=== PATIENT | female | born 1960 | race Caucasian/White ===

== ENCOUNTER → 2017-07-10 | Outpatient (CLI) | payer BC ==
--- NOTE | 2017-07-14 09:07 | MM ---
Reason for exam: screening (asymptomatic). Last mammogram was performed 1 year and 6 months ago. History: Family history of breast cancer in aunt at age 61. Benign left mammotome panel of the left breast, July 14, 2013. Taking estrogen for 1 month beginning at age 56. Taking progesterone for 1 month beginning at age 56. Physical Findings: A clinical breast exam by your physician is recommended on an annual basis and results should be correlated with mammographic findings. MG 3D Screening Mammo W/Cad Bilateral CC and MLO view(s) were taken. Prior study comparison: January 12, 2016, bilateral MG screening mammo w CAD. November 24, 2014, bilateral MG screening mammo w CAD. There are scattered fibroglandular densities. No suspicious abnormality. No significant changes when compared with prior studies. ASSESSMENT: Negative, BI-RAD 1 RECOMMENDATION: Routine screening mammogram of both breasts in 1 year.
== END | disposition home or self-care (01) ==
LOC: RADMAMWWP 14:41
PROVIDERS: ATTEND Family Medicine
DX: Z12.31 Encounter for screening mammogram for malignant neoplasm of breast (principal); Z98.890 Other specified postprocedural states
CPT/HCPCS: 77063; G0202

== ENCOUNTER → 2019-01-07 | Outpatient (CLI) | payer BC ==
--- NOTE | 2019-01-08 13:01 | MM ---
Reason for exam: screening (asymptomatic). Last mammogram was performed 1 year and 6 months ago. History: Family history of breast cancer in aunt at age 61. Benign left mammotome panel of the left breast, July 14, 2013. Taking estrogen for 1 month beginning at age 56. Taking progesterone for 1 month beginning at age 56. Physical Findings: A clinical breast exam by your physician is recommended on an annual basis and results should be correlated with mammographic findings. MG 3D Screening Mammo W/Cad Bilateral CC and MLO view(s) were taken. Prior study comparison: July 10, 2017, bilateral MG 3d screening mammo w/cad. January 12, 2016, bilateral MG screening mammo w CAD. The breast tissue is heterogeneously dense. This may lower the sensitivity of mammography. New nodular denity 3 o'clock right breast. This finding is changed when compared with previous exams. ASSESSMENT: Incomplete: need additional imaging evaluation, BI-RAD 0 RECOMMENDATION: Special view mammogram and ultrasound of the right breast. [facility] will attempt to contact patient to return for supplemental views and ultrasound.
== END | disposition home or self-care (01) ==
LOC: RADMAMWWP 11:11
PROVIDERS: ATTEND Family Medicine
DX: Z12.31 Encounter for screening mammogram for malignant neoplasm of breast (principal)
CPT/HCPCS: 77063; 77067

== ENCOUNTER → 2019-01-26 | Outpatient (CLI) | payer BC ==
--- NOTE | 2019-01-27 07:55 | MM ---
Reason for exam: additional evaluation requested from abnormal screening. Last mammogram was performed 1 month ago. History: Family history of breast cancer in aunt at age 61. Benign left mammotome panel of the left breast, July 14, 2013. Took estrogen for 1 month beginning at age 56. Took progesterone for 1 month beginning at age 56. Physical Findings: Nurse did not find any significant physical abnormalities on exam. MG 3D Work Up W/Cad RT Spot compression CC, spot compression MLO, and LM view(s) were taken of the right breast. Prior study comparison: January 07, 2019, bilateral MG 3d screening mammo w/cad. July 10, 2017, bilateral MG 3d screening mammo w/cad. There are scattered fibroglandular densities. The previously seen abnormality resolves on additional views and appears as fibroglandular tissue compatible with summation. No suspicious abnormality. These results were verbally communicated with the patient and result sheet given to the patient on 01/26/19. ASSESSMENT: Negative, BI-RAD 1 RECOMMENDATION: Return to routine screening mammogram schedule for both breasts.
== END | disposition home or self-care (01) ==
LOC: RADMAMWWP 14:34
PROVIDERS: ATTEND Family Medicine
DX: R92.8 Other abnormal and inconclusive findings on diagnostic imaging of breast (principal)
CPT/HCPCS: 77061; 77065

== ENCOUNTER → 2020-08-17 | Outpatient (CLI) | payer BC | END | disposition home or self-care (01) | LOC: LABPAT 14:47 | PROVIDERS: ATTEND Orthopaedic Surgery | DX: Z01.812 Encounter for preprocedural laboratory examination (principal) | CPT/HCPCS: 87070 ==

== ENCOUNTER 2020-08-22 09:47 | Day surgery (SDC) | payer BC ==
[2020-08-21 09:05] VITALS: BMI 40.2
[~2020-08-22 09:47] MED LIST: ACETAMINOPHEN TAB 500 MG TAB PO PRN; GABAPENTIN 300 MG CAP PO PRN; HYDROmorphone 0.5 MG/0.5 ML SYRINGE IVP PRN; LIDOCAINE 1% (10MG/ML) FOR IV START INTRADERMA PRN; MELOXICAM 7.5 MG TAB PO PRN; ONDANSETRON 4 MG/2 ML VIAL IVP ONE; TRANEXAMIC ACID 1,000 MG in SODIUM CHLORIDE 0.9% 100 ML IVPB PRN
[2020-08-22] MEDS: LACTATED RINGERS 1,000 ML IV SCH (10:38)
[2020-08-22] MEDS ORDERED: MIDAZOLAM 2 MG/2 ML VIAL IV ONE (10:47)
[2020-08-22] MEDS ORDERED: KETAMINE 10 MG/ML 20 ML VIAL ONE (11:39)
[2020-08-22] MEDS ORDERED: MIDAZOLAM 2 MG/2 ML VIAL ONE (11:39)
[2020-08-22] MEDS ORDERED: GLYCOPYRROLATE 0.2 MG/ML 2 ML VIAL ONE (11:39)
[2020-08-22] MEDS ORDERED: TRANEXAMIC ACID 1,000 MG/10 ML VIAL ONE (11:39)
[2020-08-22] MEDS ORDERED: diphenhydrAMINE 50 MG/ML 1 ML VIAL ONE (11:39)
[2020-08-22] MEDS ORDERED: SODIUM CHLORIDE 0.9% 100 ML BAG ONE (11:39)
[2020-08-22] MEDS ORDERED: fentaNYL (PF) 50 MCG/ML 2 ML AMP ONE (11:39)
[2020-08-22] MEDS ORDERED: PROPOFOL 10 MG/ML 20 ML VIAL IV ONE (11:39)
[2020-08-22] MEDS ORDERED: ROPIVACAINE 0.2%-NS ON-Q PUMP 1,090 MG, EMPTY PAIN BALL 1 EACH MISCELLANE PRN (11:41)
[2020-08-22] MEDS ORDERED: bisacodyL 10 MG SUPP RECTAL PRN (11:42)
[2020-08-22] MEDS ORDERED: HYDROmorphone 0.5 MG/0.5 ML SYRINGE IVP PRN (11:42)
[2020-08-22] MEDS ORDERED: hydrOXYzine pamoate 25 MG CAP PO PRN (11:42)
[2020-08-22] MEDS ORDERED: HYDROmorphone 0.2 MG/1 ML SYRINGE IVP PRN (11:42)
[2020-08-22] MEDS ORDERED: HYDROmorphone 1 MG/ML 1 ML SYRINGE IVP PRN (11:42)
[2020-08-22] MEDS ORDERED: HYDROcodone/APAP 5-325MG 1 EACH TAB PO PRN (11:42)
[2020-08-22] MEDS ORDERED: NALOXONE 0.4 MG/ML 1 ML VIAL IV PRN (11:42)
[2020-08-22] MEDS ORDERED: diazePAM 5 MG TAB PO PRN (11:42)
[2020-08-22] MEDS ORDERED: MAGNESIUM HYDROXIDE 2,400 MG/10 ML CUP PO PRN (11:42)
[2020-08-22] MEDS ORDERED: ONDANSETRON 4 MG/2 ML VIAL IVP PRN (11:42)
[2020-08-22] MEDS ORDERED: ceFAZolin 3,000 MG in SODIUM CHLORIDE 0.9% IRRIGATIO 3,000 ML IRRIGATION ONE (11:44)
--- NOTE | 2020-08-22 11:44 | P.ANPRN ---
Procedure Note - Anesthesia - Nerve Block Performed Left Adductor Canal Time Out Performed: Yes (10:48) Date of Procedure: 08/22/20 Procedure Start Time: :48 Procedure Stop Time: 11:03 Location of Patient: PreOp Indication: Acute Post-Operative Pain, Requested by Surgeon (Dr Kinney) Sedation Type: Sedate with meaningful contact maintained Preparation: Sterile Prep, Sterile Dressing Position: Supine Catheter: Indwelling Needle Types: Pajunk Needle Gauge: 21, Other (see comment) Ultrasound used to visualize needle placement: Yes Ultrasound used to observe medication spread: Yes Injectate: 0.5% Ropivacaine (see comment for volume) (20cc) Blood Aspirated: No Pain Paresthesia on Injection Noted: No Resistance on Injection: Normal Image Stored and Saved: Yes Events: Uneventful and Well Tolerated
[2020-08-22] MEDS ORDERED: LACTATED RINGERS 1,000 ML IV ONE (12:05)
[2020-08-22] MEDS: Ropivacaine 246 mg in RECK SYR 246 MG, Epinephrine 0.5 mg in RECK SYR 0.5 MG, Clonidine... MISCELLANE PRN ×2 (12:09→12:35)
--- NOTE | 2020-08-22 12:57 | P.OP ---
Date of Procedure: 08/22/20 Preoperative Diagnosis: Severe osteoarthritis left knee Postoperative Diagnosis: Severe osteoarthritis left knee Procedure(s) Performed: Left total knee arthroplasty Implants: [employer] II CR Oxinium cruciate retaining femoral component size 4, left [employer] nonporous tibial baseplate size 2, left [employer] II, XLPE Deep Dished articular insert, size 11 mm, Size 1-2, left [employer] Afia II resurfacing patellar component, oval, 29 mm All components were cemented using Palacos R bone cement The articulation is Oxinium on polyethylene Anesthesia: spinal Surgeon: Aguilar Kinney Lan/Wan Engineer #1: Esthela Snyder Estimated Blood Loss (ml): 30 Pathology: other (Bone and cartilage) Condition: stable Disposition: PACU Indications for Procedure: After failure of conservative treatment we discussed the surgical and nonsurgical treatment options at length. Patient wishes to proceed with a total knee arthroplasty. Complications specific to this procedure were discussed at length, including but not limited to infection, bleeding, stiffness, and nerve injury. Covid-19 was also discussed at length with the patient, and they are aware of the current policies and procedures. The patient was given the option of delaying surgery, but they elect to proceed knowing these risks. Patient is aware of all these complications and informed consent was obtained Operative Findings: The operative findings are consistent with severe osteoarthritis of the left knee Description of Procedure: Patient was seen in the preoperative area and the consent was reviewed and the operative site was marked with a skin marker. The patient verified the procedure and the operative site. An adductor canal pain catheter was placed by anesthesia in the preoperative area. The patient was then brought to the operating room and given preoperative antibiotics intravenously. A gram of transexamic acid was given intravenously. A spinal anesthetic was administered by the anesthesia department. A tourniquet was placed on the upper thigh and the lower extremity was prepped with chlorhexidine and draped in usual sterile fashion. A universal timeout was then performed which confirmed the patient's name, surgical site, ALLERGIES, and consent. The lower extremity was then exsanguinated and tourniquet was inflated to 250 mmHg. A standard anterior midline approach to the knee was performed. The skin and subcutaneous tissue were sharply dissected down to the patellar tendon. A medial parapatellar arthrotomy was then performed. The knee was then extended, the patellar was everted, and the knee was again flexed. The infra-patellar fat pad was removed in order to enhance exposure. The anterior horns of both menisci were excised, and a release was performed to the posterior medial aspect of the knee. On gross visual inspection, there was complete loss of articular cartilage in the medial and patellofemoral joint spaces. There was also significant cartilage damage in the lateral compartment. There were multiple periarticular osteophytes globally about the knee which were then removed with a Ronguer. The femoral canal was then opened with the 9.5 mm intramedullary drill. The 8 mm intramedullary leola was then inserted into the femoral canal with the distal femoral cutting guide set for 5 of valgus. The distal femoral cutting block was then pinned in place. The intramedullary leola was then removed, and the distal femur was then cut. The cutting block was then removed and the cut was checked for symmetry. The resected bone was then measured to confirm the appropriate distal femoral resection. Next, the sizing guide was then placed and set for 3 external rotation based off of the epicondylar axis and Whitesides line. Pins were then placed and the drill holes, and the femur was sized with the sizing stylus. The pins were then removed, and the sizing guide was then removed. The spikes of the femoral block was then placed into the predrilled holes, and malleted into place. Two 45 mm pins were then placed into the fixation holes on the cutting block. An estela wing was then used to ensure there would be no notching with the anterior cut. The anterior condyles were cut without notching. The anterior chord cut was then performed, followed by the posterior cut, posterior chamfer cut, and the anterior chamfer cut. The collateral ligaments were protected during the entire process. The cutting block was then removed. Any remaining bone and osteophytes were removed from the femur with a Rominger. The femoral canal was plugged with autologous bone. Attention was then directed to the tibia. The remaining ACL was removed with a Ronguer, and the tibia was then gently subluxed forward with a large bent knee retractor. Any remaining menisci were excised. The posterior lateral corner was cauterized in order to coagulate the lateral geniculate artery. The extra medullary tibial cutting guide was then placed, set for the appropriate rotation, slope, and depth of resection. The proximal tibia cutting guide was then pinned in place. Proximal tibia was then cut and sized. The femoral trial was placed. A narrow saw blade was then used to remove the anterior intracondylar femoral bone. The CR notch trial was then placed. The tibial trial was placed with the appropriate-sized insert. The knee was able to fully extend and flex to 130 and was stable throughout all range of motion. The knee was then extended and the patella was everted. Patella was then measured, and then using an osteotomy guide, the patella was cut at the appropriate level. The patella was then measured and drilled and the patella trial was then placed. The knee was then taken through range of motion with the patella trial and the patella tracked normally using the no thumbs technique.. The knee was then extended patella trial was then removed and the patella was everted. Knee was then flexed and lug holes were drilled through the femoral trial and the femoral trial was then removed. The tibial was then re-exposed, and the tibial broach guide was then pinned in place after it was set for the appropriate rotation to allow for the most coverage without overhang. The tibia was then reamed and broached. The cut surfaces of bone were then irrigated with pulsatile lavage. The posterior structures were injected with the ropivacaine solution. The knee was also irrigated with Irrisept solution. The components were then opened, the cement was mixed, and the components were then cemented in place. The cement was allowed to harden with the knee in full extension. While the cement was hardening, the remaining soft tissues were then injected with a ropivacaine so lution, which consisted of 246.25 mg of ropivacaine, 0.5 mg of epinephrine, 30 mg of Toradol, 80 g of clonidine, and 48.45 mL of sterile water, for a total of 100 mL of fluid injected. After the cemented hardened. The tourniquet was released, and hemostasis was obtained. A second gram of transexamic acid was given intravenously. The knee was again irrigated. The knee was again taken through range of motion and found to be stable throughout all range of motion of 0-130, and the patella tracked normally. The fascia was then closed with 0 Vicryl followed by #2 strata fix suture. The subcutaneous tissue was closed with 3-0 Vicryl and 3-0 strata fix. Exofin glue was used for the skin and placed with the knee in flexion. After the glue had dried, and Optafoam silver impregnated dressing was applied. The patient was then transferred to recovery room in stable condition. The power plant assistant VICTORINA Arroyo was required due the complexity surgery and the need for a skilled manager surgical. She assisted in positioning, draping, retraction, and closure of the wound.
--- NOTE | 2020-08-22 14:00 | XR ---
Limited left knee HISTORY: Status post left knee arthroplasty 2 views the left knee, correlation prior exam 06/17/2013 Patient is status post left knee arthroplasty. There is anatomic alignment. Lucency is present in the soft tissues. Soft tissue calcification in the pretibial location may represent phlebolith. IMPRESSION: Orthopedic follow-up.
[2020-08-22] MEDS: SODIUM CHLORIDE 0.9% 1,000 ML IV SCH (17:16)
--- NOTE | 2020-08-22 17:43 | P.CONS ---
History of Present Illness - Reason for Consult Consult date: 08/22/20 Medical management - Chief Complaint Left knee osteoarthritis - History of Present Illness This is a 59-year-old female with past medical history noted below significant for severe osteoarthritis of the left knee was admitted to the hospital for elective total left knee arthroplasty. Patient is postoperative day #0. She is doing fairly well. Her blood pressure was borderline low but patient denies any dizziness or lightheadedness. She is feeling well. She said that she took her blood pressure medication this morning as usual. She does not have any specific concerns or complaints. I was asked to see her for medical management. Review of Systems Review of system: 14 points review of systems were obtained and were negative except to what were mentioned in the HPI. 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 Past Drug Use History: None Reported - Past Family History Mother Family Medical History: No Reported History Father Family Medical History: Pulmonary Embolus Medications and Allergies Home Medications Medication Instructions Recorded Confirmed Type Acetaminophen [Tylenol Arthritis] 650 mg PO DIRECTED PRN 08/21/20 08/22/20 History Cetirizine HCl [Zyrtec] 10 mg PO DAILY 08/21/20 08/22/20 History Ergocalciferol [Vitamin D2] 50,000 unit PO DIRECTED 08/21/20 08/22/20 History Levothyroxine Sodium [Synthroid] 137 mcg PO DAILY 08/21/20 08/22/20 History Losartan/Hydrochlorothiazide 1 tab PO DAILY 08/21/20 08/22/20 History [Losartan-Hctz 50-12.5 mg Tab] Omeprazole 20 mg PO DAILY 08/21/20 08/22/20 History Allergies Allergy/AdvReac Type Severity Reaction Status Date / Time aspirin Allergy Unknown eyes puffy Verified 08/22/20 10:07 Physical Exam Vitals: Vital Signs Temp Pulse Pulse Resp BP BP Pulse Ox 08/22/20 17:27 97.7 F 65 20 118/74 99 08/22/20 16:30 52 L 16 94/54 100 08/22/20 16:00 54 L 16 102/54 99 08/22/20 15:30 55 L 16 95/50 98 08/22/20 15:15 61 16 96/52 98 08/22/20 15:00 60 16 110/55 100 08/22/20 14:45 67 16 116/55 100 08/22/20 14:30 67 16 116/55 100 08/22/20 14:03 55 L 16 120/59 100 08/22/20 13:48 76 16 120/59 100 08/22/20 13:33 97 F L 86 16 132/63 100 08/22/20 10:36 98.7 F 94 16 183/79 98 Intake and Output 08/22/20 08/22/20 08/22/20 06:59 14:59 22:59 Intake Total 1851 100 Output Total 30 Balance 1821 100 Intake: IV 1851 100 Output: Estimated Blood Loss 30 Other: Weight 112 kg General: The patient is awake and alert, in no distress Eye: there is normal conjunctiva bilaterally. Neck: The neck is supple, there is no JVD. Cardiovascular: Normal S1-S2, no S3-S4, no murmurs. Respiratory: Lungs clear to auscultation bilaterally Gastrointestinal: Abdomen is soft, nontender Musculoskeletal: There is no pedal edema. Neurological:. Speech is normal. Skin: Skin is warm and dry Assessment and Plan Assessment: 1. Postoperative day #0 status post total left knee arthroplasty: Postoperative care, pain control, and DVT prophylaxis per orthopedic protocol. Currently on aspirin 81 mg twice daily. PT/OT evaluation. 2. Essential hypertension, blood pressure is on the lower side. Hold home blood pressure medications for now and continue to monitor. 3. Chronic medical condition, GERD and hypothyroidism: Continue home medications Today, I reviewed her medication list. CBC ordered for the morning. I would continue to follow-up on the patient closely with you. Thank you very much for the consultation.
[2020-08-22] MEDS: ASPIRIN 81 MG PO SCH (20:12)
[2020-08-22] MEDS ORDERED: SENNOSIDES-DOCUSATE SODIUM 1 EACH TAB PO SCH (21:00)
[2020-08-23] MEDS: SODIUM CHLORIDE 0.9% 1,000 ML IV SCH (02:02)
[2020-08-23] MEDS: HYDROcodone/APAP 5-325MG 1 EACH TAB PO PRN ×2 (03:40→09:34)
--- NOTE | 2020-08-23 06:01 | P.PN ---
Progress Note - Text Progress Note Date: 08/23/20 Postoperative day # 1 status post left total knee arthroplasty, under spinal a nesthesia, and adductor canal catheter placed for postoperative analgesia. Currently on ropivacaine 0.2% 8 mL per hour with continuous infusion. There is no erythema, and there is no tenderness at site of catheter insertion. VAS: 3/10 Breakthrough Meds: When necessary hydrocodone Complications: None . Plan: Plan is to continue: Plans to continue the current settings. Patient will go home as planned.
[2020-08-23] MEDS: LACTATED RINGERS 1,000 ML IV SCH (06:12)
[2020-08-23 06:36] LABS: Basophils % (A) 0 %; Eosinophils # (A) 0.2 k/uL (0-0.7); Eosinophils % (A) 2 %; HCT 32.7 % (34.0-46.0); Lymphocytes # (A) 0.9 k/uL (1.0-4.8); Lymphocytes % (A) 13 %; MCH 29.3 pg (25.0-35.0); MCHC 33.6 g/dL (31.0-37.0); MCV 87.3 fL (80.0-100.0); Mean Platelet Volume 6.9; Monocytes # (A) 0.4 k/uL (0-1.0); Monocytes % (A) 5 %; Neutrophils # (A) 5.5 k/uL (1.3-7.7); Neutrophils % (A) 78 %; Platelet Count 172 k/uL (150-450); RBC 3.74 m/uL (3.80-5.40); RDW 13.3 % (11.5-15.5); WBC 7.1 k/uL (3.8-10.6)
[2020-08-23 07:47] VITALS: BP 110/58; PULSE 91; RESP 19; TEMP 98.9
--- NOTE | 2020-08-23 08:25 | P.DS ---
Providers Expected date of discharge: 08/23/20 Attending physician: Aguilar Kinney Consults: 08/22/20 11:42 Consult Physician Routine Consulting Provider: Sandra Rowe Consult Reason/Comments: medical management Do you want consulting provider notified?: Yes Primary care physician: Stated None - Discharge Diagnosis(es) (1) Osteoarthritis of left knee Current Visit: Yes Status: Acute (2) S/P total knee arthroplasty Current Visit: Yes Status: Acute Hospital Course: This is a 59-year-old female with known history of degenerative arthritis of the left knee. The patient presented for evaluation as an outpatient. After discussion and consideration patient elects to proceed with total knee arthroplasty. The patient is seen preoperatively by Dr. Kinney and medically cleared for surgery by their primary care physician. Patient is admitted to [facility] on 08/22/2020 for total knee arthroplasty. The procedure is performed without complication or sequelae. The patient is doing well postoperatively. Labs and vital signs are stable on day of discharge. On day of discharge patient's knee incision is healing well. There is minimal erythema. There is no drainage noted at this time. There is minimal soft tissue swelling to the knee. Patient has full foot and ankle motion without difficulty or pain. Calf is soft and nontender to palpation. Neurovascular status to the left lower extremity is intact. Patient is discharged home in good condition. Opioid start talking form is reviewed and signed. Please see med rec for accurate list of home medications. Plan - Discharge Summary Discharge Rx Participant: Yes New Discharge Prescriptions: New Aspirin [Adult Low Dose Aspirin EC] 81 mg PO BID 30 Days #60 tablet. HYDROcodone/APAP 5-325MG [[place] 5-325] 1 - 2 tab PO Q6HR PRN #48 tab PRN Reason: Pain Sennosides [Senokot] 2 tab PO DAILY PRN #60 tablet PRN Reason: Constipation No Action Ergocalciferol [Vitamin D2] 50,000 unit PO DIRECTED Levothyroxine Sodium [Synthroid] 137 mcg PO DAILY Losartan/Hydrochlorothiazide [Losartan-Hctz 50-12.5 mg Tab] 1 tab PO DAILY Cetirizine HCl [Zyrtec] 10 mg PO DAILY Omeprazole 20 mg PO DAILY Acetaminophen [Tylenol Arthritis] 650 mg PO DIRECTED PRN PRN Reason: Pain Discharge Medication List Acetaminophen [Tylenol Arthritis] 650 mg PO DIRECTED PRN 08/21/20 [History] Cetirizine HCl [Zyrtec] 10 mg PO DAILY 08/21/20 [History] Ergocalciferol [Vitamin D2] 50,000 unit PO DIRECTED 08/21/20 [History] Levothyroxine Sodium [Synthroid] 137 mcg PO DAILY 08/21/20 [History] Losartan/Hydrochlorothiazide [Losartan-Hctz 50-12.5 mg Tab] 1 tab PO DAILY 08/21/20 [History] Omeprazole 20 mg PO DAILY 08/21/20 [History] Aspirin [Adult Low Dose Aspirin EC] 81 mg PO BID 30 Days #60 tablet. 08/23/20 [Rx] HYDROcodone/APAP 5-325MG [[place] 5-325] 1 - 2 tab PO Q6HR PRN #48 tab 08/23/20 [Rx] Sennosides [Senokot] 2 tab PO DAILY PRN #60 tablet 08/23/20 [Rx] Follow up Appointment(s)/Referral(s): Aguilar Kinney DO [Doctor of Osteopathic Medicine] - 2 Weeks Activity/Diet/Wound Care/Special Instructions: Weightbearing as tolerated with a walker. CPM 5-6h daily. Leave dressing intact. May be removed by home care nurse or by patient in 10 days. May shower with dressing on. Recommend use of compression stockings daily until follow up to help prevent swelling and blood clots. May remove at night before sleeping. Please take aspirin 81mg twice daily for 30 days to prevent blood clots. Please follow up with [facility] and call with any questions or concerns, . Discharge Disposition: HOME WITH HOME HEALTH SERVICES
[2020-08-23] MEDS ORDERED: LEVOTHYROXINE 137 MCG TAB PO SCH (09:00)
[2020-08-23] MEDS ORDERED: PANTOPRAZOLE 40 MG TABLET PO SCH (09:00)
[2020-08-23] MEDS: ASPIRIN 81 MG PO SCH (09:34)
--- NOTE | 2020-08-23 10:30 | P.PN ---
Subjective Progress Note Date: 08/23/20 Principal diagnosis: status post total left knee arthroplasty Patient denies any acute complaints. No acute issues overnight Objective - Vital Signs Vital signs: Vital Signs Temp 98.9 F 08/23/20 07:47 Pulse 91 08/23/20 07:55 Resp 19 08/23/20 07:55 BP 110/58 08/23/20 07:47 Pulse Ox 95 08/23/20 07:47 Intake & Output 08/22/20 08/23/20 08/23/20 18:59 06:59 18:59 Intake Total 1950 480 Output Total 30 0 Balance 1920 480 Weight 112 kg Intake: IV 1950 Oral 480 Output: Urine 0 0 Estimated Blood Loss 30 Other: Voiding Method Toilet Toilet # Voids 2 - Exam General examination - Alert and Oriented 3 in NAD Heart - + S1S2 no murmurs Lungs - Clear to auscultation Abdomen soft NT ND +ve BS Extremities - L knee bandage is intact and dry COMMUNICATIONS EXECUTIVE - Moving all 4 extremities spontaneously Psych - Calm and cooperative - Labs CBC & Chem 7: 08/23/20 06:20 Labs: Abnormal Lab Results - Last 24 Hours (Table) 08/23/20 Range/Units 06:20 RBC 3.74 L (3.80-5.40) m/uL Hgb 11.0 L (11.4-16.0) gm/dL Hct 32.7 L (34.0-46.0) % Lymphocytes # 0.9 L (1.0-4.8) k/uL Assessment and Plan Assessment: 1. Postoperative day #1 status post total left knee arthroplasty: Your ortho management 2. Essential hypertension: controlled 3. Chronic medical condition, GERD and hypothyroidism: Continue home medicati ons Patient stable for discharge from medical stand point
== END 2020-08-23 11:32 | disposition home health service (06) ==
LOC: OR 09:47 → 4SSUR 13:30 → OR 08-23 11:32
PROVIDERS: ATTEND Orthopaedic Surgery
DX: M17.12 Unilateral primary osteoarthritis, left knee (principal); M25.762 Osteophyte, left knee; I10 Essential (primary) hypertension; E03.9 Hypothyroidism, unspecified; E78.5 Hyperlipidemia, unspecified; K21.9 Gastro-esophageal reflux disease without esophagitis; K57.90 Diverticulosis of intestine, part unspecified, without perforation or abscess without bleeding; Z88.6 Allergy status to analgesic agent; Z79.890 Hormone replacement therapy; Z79.899 Other long term (current) drug therapy; Z87.891 Personal history of nicotine dependence; Z82.49 Family history of ischemic heart disease and other diseases of the circulatory system; Z83.3 Family history of diabetes mellitus; Z97.3 Presence of spectacles and contact lenses
CPT/HCPCS: 97110; 97161; 64448; 76942; 85025; 88300; 73560; 27447; C1713; C1776; J2250; J1200; J0690 ×3; J2405; J3010; J2704; J2795